=== PATIENT | male | born 1945 | race Hispanic/Latino ===

== ENCOUNTER → 2018-07-25 | Outpatient (CLI) | payer OTHER ==
[~2018-07-25] MED LIST: IOPAMIDOL 370 MG/ML 200 ML INFUS..BTL INJ ONE; SODIUM CHLORIDE 0.9% 100 ML 100 ML ONE
[2018-07-25 11:17] LABS: BLOOD UREA NITROGEN 17 mg/dL (7-26); BUN/CREATININE RATIO 19 (6-25); CREATININE, SERUM 0.88 mg/dL (0.72-1.25); EST GLOMERULAR FILTRATION RATE > 60 ML/MIN (60-)
--- NOTE | 2018-07-26 13:33 | Diagnostic Imaging Report ---
ABDOMINOPELVIC CT WITH CTA RUNOFF PROTOCOL WITH AND WITHOUT IV CONTRAST. 3D post-processing of the images was performed, and the post-processed images were used in interpretation. COMPARISON: none available. RADIATION DOSE: Dose length product: 1424.3 mGy cm CONTRAST: 100 cc of Isovue 370. FINDINGS: VESSELS: There are moderate calcified and noncalcified atherosclerotic plaques in the aorta and its major branches. There is no evidence of a flap within the aorta to suggest a dissection. No evidence of abdominal aortic aneurysm. The celiac artery, superior mesenteric artery, and inferior mesenteric artery are patent. There is a single right renal artery and a single left renal artery, both of which are patent. Right lower extremity: The common femoral artery, superficial femoral artery, and popliteal artery are patent, and there is a patent 3-vessel run-off. Mild atherosclerotic changes at the popliteal bifurcation. Mild atherosclerotic changes of the anterior tibial artery. Diminutive peroneal artery which is patent. Patent anterior and posterior tibial arteries. Left lower extremity: The common femoral artery, superficial femoral artery, and popliteal artery are patent, and there is a patent 3-vessel run-off. There is no significant atherosclerotic disease in the common iliac artery, common femoral artery, or popliteal artery. The peroneal artery is somewhat diminutive but patent. ABDOMEN: The liver, pancreas, spleen, and adrenal glands are unremarkable. There is no intra-abdominal or retroperitoneal adenopathy. Normal appendix. Left renal hypodensities likely represent cysts. The right kidney is unremarkable. Patchy subsegmental atelectasis at the lung bases. There is a 3 mm subpleural nodule in the left lower lobe on series 358, image 10. Coronary atherosclerosis. BONES: There are no bony lytic or blastic lesions. IMPRESSION: Patent vasculature of the bilateral lower extremities with three vessel runoffs bilaterally. No evidence of aortic dissection or aneurysm. Moderate atherosclerotic changes of the abdominal aorta and branch vessels. A 3 mm subpleural nodule in the left lower lobe. In a low risk patient, this is likely benign and no further follow-up is suggested. If the patient is at higher risk of malignancy, a follow-up chest CT in 12 months may be considered. Signed by: Dr. Cat Roche MD on 07/26/2018 1:29 PM
== END ==
LOC: CT 10:25
PROVIDERS: ATTEND Surgery
DX: I73.9 Peripheral vascular disease, unspecified (principal)
CPT/HCPCS: 36415; 75635; 82565; 84520; Q9967

== ENCOUNTER 2021-06-15 21:43 | Observation (INO) | payer MEDICARE, OTHER ==
[~2021-06-15] VITALS: Ht 167.6 cm; Wt 97.5 kg
[2021-06-15] MEDS: CEFTRIAXONE 1 GM in SODIUM CHLORIDE 0.9% 50ML 50 ML IV SCH ×2 (00:15→09:00)
[2021-06-15] MEDS ORDERED: ACETAMINOPHEN 325 MG TAB PO ONE (22:15)
[2021-06-15 22:25] LABS: BASOPHILS % 0.3 % (0.0-1.0); EOSINOPHILS % 0.3 % (0.0-6.0); HEMATOCRIT 40.1 % (38.2-49.6); LYMPHOCYTES # (AUTO) 0.8 (1.0-3.2); LYMPHOCYTES % 19.5 % (18.0-39.1); MEAN CORPUSCULAR HEMOGLOBIN 31.1 pg (28-32); MEAN CORPUSCULAR HGB CONC 32.4 g/dL (31-35); MEAN CORPUSCULAR VOLUME 95.9 fL (81-99); MONOCYTES # (AUTO) 0.1 (0.2-0.8); MONOCYTES % 2.5 % (4.4-11.3); NEUTROPHILS # (AUTO) 3.1 (2.1-6.9); NEUTROPHILS % 76.9 % (38.7-80.0); PLATELET COUNT 126 x10e3/uL (140-360); RED BLOOD COUNT 4.18 x10e6/uL (4.3-5.7); RED CELL DISTRIBUTION WIDTH 15.3 % (11.7-14.4)
[2021-06-15 22:45] LABS: ALBUMIN 3.2 g/dL (3.5-5.0); ALBUMIN/GLOBULIN RATIO 0.9 (0.8-2.0); ANION GAP 11.4 mmol/L (8-16); CALCIUM 8.7 mg/dL (8.4-10.2); CREATININE, SERUM 1.1 mg/dL (0.72-1.25); POTASSIUM 4.4 mmol/L (3.5-5.1)
[2021-06-15 22:51] LABS: CREATINE KINASE MB 0.7 ng/mL (0-5.0)
[2021-06-15 23:39] LABS: CLARITY,URINE SL CLOUDY (CLEAR); COLOR,URINE YELLOW (YELLOW); KETONES,URINE TRACE (NEGATIVE); LEUKOCYTE ESTERASE ,URINE TRACE (NEGATIVE); NITRITE,URINE NEGATIVE (NEGATIVE); PROTEIN,URINE DIPSTICK 2+ (NEGATIVE); URINE UROBILINOGEN 0.2 mg/dL (0.2 - 1)
[2021-06-15 23:45] LABS: BACTERIA,URINE MODERATE /HPF; EPITHELIAL CELLS,URINE FEW /LPF; RBC,URINE 0-5 /HPF (0-5)
[2021-06-15] MEDS ORDERED: SODIUM CHLORIDE FLUSH 10 ML SYR INJ PRN (23:45)
[2021-06-15] MEDS ORDERED: ONDANSETRON HCL INJ 2MG/ML 2ML 2 MG/ML VIAL IV PRN (23:45)
[2021-06-16] VITALS (7 sets, daily range): BP systolic 106–162; BP diastolic 62–83
[2021-06-16] MEDS ORDERED: CEFTRIAXONE 1 GM VIAL IV ONE (00:15)
[2021-06-16] MEDS ORDERED: ACETAMINOPHEN 325 MG TAB PO PRN (02:00)
[2021-06-16 06:59] LABS: BASOPHILS % 0.2 % (0.0-1.0); EOSINOPHILS % 0.6 % (0.0-6.0); HEMATOCRIT 37.4 % (38.2-49.6); HEMOGLOBIN 12.1 g/dL (14.0-18.0); LYMPHOCYTES # (AUTO) 1.1 (1.0-3.2); LYMPHOCYTES % 22.9 % (18.0-39.1); MEAN CORPUSCULAR HEMOGLOBIN 31.2 pg (28-32); MEAN CORPUSCULAR HGB CONC 32.4 g/dL (31-35); MEAN CORPUSCULAR VOLUME 96.4 fL (81-99); MONOCYTES # (AUTO) 0.2 (0.2-0.8); MONOCYTES % 3.8 % (4.4-11.3); NEUTROPHILS # (AUTO) 3.6 (2.1-6.9); NEUTROPHILS % 72.1 % (38.7-80.0); PLATELET COUNT 128 x10e3/uL (140-360); RED BLOOD COUNT 3.88 x10e6/uL (4.3-5.7); RED CELL DISTRIBUTION WIDTH 15.3 % (11.7-14.4)
[2021-06-16 07:30] LABS: CREATINE KINASE MB 0.8 ng/mL (0-5.0)
[2021-06-16 07:32] LABS: ALBUMIN 2.8 g/dL (3.5-5.0); ALBUMIN/GLOBULIN RATIO 0.8 (0.8-2.0); ANION GAP 10.2 mmol/L (8-16); CALCIUM 8.4 mg/dL (8.4-10.2); CREATININE, SERUM 1.05 mg/dL (0.72-1.25); POTASSIUM 4.2 mmol/L (3.5-5.1)
[2021-06-16] MEDS ORDERED: DOCUSATE SODIUM 100 MG CAP PO PRN (08:45)
[2021-06-16] MEDS: CEFTRIAXONE 1 GM in SODIUM CHLORIDE 0.9% 50ML 50 ML IV SCH (08:55)
[2021-06-16] MEDS ORDERED: CEFTRIAXONE 1 GM in SODIUM CHLORIDE 0.9% 50ML 50 ML IV SCH (09:00)
[2021-06-16 09:06] LABS: CHOL/HDL RATIO 3.5 (3.9-4.7)
[2021-06-16] MEDS ORDERED: SODIUM CHLORIDE 0.9% 1000ML 1,000 ML ONE (11:26)
[2021-06-16] MEDS ORDERED: CASIRIVIMAB/IMDEVIMAB 10 ML in SODIUM CHLORIDE 0.9% 100 ML IV ONE (13:15)
[2021-06-16] MEDS ORDERED: FAMOTIDINE 20 MG TAB PO SCH (16:30)
[2021-06-16 17:57] LABS: CREATINE KINASE MB 0.7 ng/mL (0-5.0)
[2021-06-16] MEDS ORDERED: ASPIRIN81 MG PO (18:52)
[2021-06-16] MEDS ORDERED: CEPHALEXIN500 MG PO (18:52)
[2021-06-16] MEDS ORDERED: ZOLPIDEM TARTRATE 5 MG TAB PO PRN (21:00)
== END 2021-06-16 19:30 | disposition home or self-care (01) ==
LOC: ER 22:08 → ERHOLD 23:47 → IMCU 06-16 00:34
PROVIDERS: ADMIT Internal Medicine; ATTEND Internal Medicine
DX: U07.1 COVID-19 (principal); N39.0 Urinary tract infection, site not specified; J12.82 Pneumonia due to coronavirus disease 2019; E66.9 Obesity, unspecified; Z68.34 Body mass index [BMI] 34.0-34.9, adult
CPT/HCPCS: 36415 ×2; 70450; 71045; 80053 ×2; 80061; 81001; 82550 ×2; 82553 ×2; 83036; 84484 ×2; 85025 ×2; 87040; 87086; 87186; 93005; 93306; 93880; 97116; 97161; 99284; G0378 ×2; J0696; J7030; J7050; U0002

== ENCOUNTER 2021-06-25 12:27 | Emergency (ER) | payer MEDICARE, OTHER ==
[~2021-06-25] VITALS: Ht 167.6 cm; Wt 97.5 kg
[~2021-06-25 12:27] MED LIST changes: +ASPIRIN81 MG PO; +CEPHALEXIN500 MG PO; -IOPAMIDOL 370 MG/ML 200 ML INFUS..BTL INJ ONE; -SODIUM CHLORIDE 0.9% 100 ML 100 ML ONE
== END 2021-06-25 13:35 | disposition home or self-care (01) ==
LOC: ER 12:42
DX: U07.1 COVID-19 (principal); I10 Essential (primary) hypertension; E78.5 Hyperlipidemia, unspecified
CPT/HCPCS: 99282

== ENCOUNTER → 2022-12-28 | Day surgery (SDC) | payer MEDICARE, OTHER ==
[2022-12-23 10:55] LABS: BASOPHILS % 0.8 % (0.0-1.0); EOSINOPHILS # (AUTO) 0.3 (0.0-0.4); EOSINOPHILS % 4.7 % (0.0-6.0); HEMATOCRIT 41.3 % (38.2-49.6); HEMOGLOBIN 13.5 g/dL (14.0-18.0); LYMPHOCYTES # (AUTO) 1.2 (1.0-3.2); LYMPHOCYTES % 22.7 % (18.0-39.1); MEAN CORPUSCULAR HGB CONC 32.7 g/dL (31-35); MEAN CORPUSCULAR VOLUME 94.9 fL (81-99); MONOCYTES # (AUTO) 0.3 (0.2-0.8); MONOCYTES % 5.1 % (4.4-11.3); NEUTROPHILS # (AUTO) 3.5 (2.1-6.9); NEUTROPHILS % 66.3 % (38.7-80.0); PLATELET COUNT 168 x10e3/uL (140-360); RED BLOOD COUNT 4.35 x10e6/uL (4.3-5.7); RED CELL DISTRIBUTION WIDTH 14.5 % (11.7-14.4)
[2022-12-23 11:12] LABS: INR 1.05; PROTHROMBIN TIME 14.2 seconds (11.9-14.5)
[2022-12-23 11:22] LABS: ALBUMIN 3.7 g/dL (3.5-5.0); ALBUMIN/GLOBULIN RATIO 1.2 (0.8-2.0); ANION GAP 13.6 mmol/L (8-16); CALCIUM 8.9 mg/dL (8.4-10.2); CREATININE, SERUM 0.84 mg/dL (0.72-1.25); POTASSIUM 4.6 mmol/L (3.5-5.1)
[~2022-12-28] VITALS: Ht 167.6 cm; Wt 111.1 kg
[2022-12-28] VITALS (10 sets, daily range): BP systolic 133–153; BP diastolic 73–84
[~2022-12-28] MED LIST changes: +ALPRAZOLAM 0.5 MG TAB ONE; +DIPHENHYDRAMINE HCL 25 MG CAP ONE; +FENTANYL CITRATE/PF 100MCG/2 ML INJ ONE; +FLOMAX0.4 MG PO; +HEPARIN SOD (PORCINE) 1000 UNIT/ML 30ML ONE; +HEPARIN SOD/SOD CHLORIDE 2,000 ML ONE; +IOPAMIDOL 370 MG/ML 100 ML INFUS..BTL INJ ONE; +LEVOTHYROXINE50 MCG PO; +LIDOCAINE HCL 2% LOCAL 20 ML VIAL ONE; +LOSARTAN POTAS100 MG PO; +MIDAZOLAM HCL 2 MG/2 ML VIAL ONE; +NITROGLYCERIN/D5W 200 MCG/ML 250 ML ONE; +SODIUM CHLORIDE 0.9% 1000ML 1,000 ML ONE; +VERAPAMIL HCL 2.5 MG/ML 2 ML VIAL ONE; +VYTORIN 10-201 EACH PO
== END | disposition home or self-care (01) ==
LOC: CATH LAB 13:40
PROVIDERS: ATTEND Internal Medicine Interventional Cardiology
DX: I25.10 Atherosclerotic heart disease of native coronary artery without angina pectoris (principal); I10 Essential (primary) hypertension; R94.39 Abnormal result of other cardiovascular function study; E78.2 Mixed hyperlipidemia; I73.9 Peripheral vascular disease, unspecified; I65.23 Occlusion and stenosis of bilateral carotid arteries; I82.493 Acute embolism and thrombosis of other specified deep vein of lower extremity, bilateral; R73.03 Prediabetes; E03.9 Hypothyroidism, unspecified; E66.01 Morbid (severe) obesity due to excess calories; Z01.812 Encounter for preprocedural laboratory examination; Z79.899 Other long term (current) drug therapy; Z68.39 Body mass index [BMI] 39.0-39.9, adult; Z82.49 Family history of ischemic heart disease and other diseases of the circulatory system
CPT/HCPCS: 36415; 80053; 85025; 85610; 93454; C1887; C1894; J1644; J2001; J2250; J3010; J7030; Q9967; 99152; 99153